=== PATIENT | female | born 1970 | race Hispanic/Latino ===

== ENCOUNTER 2018-10-20 09:15 | Emergency (ER) | payer OTHER ==
[2018-10-20 10:13] LABS: BILIRUBIN,URINE Negative (NEGATIVE); COLOR,URINE Yellow (YELLOW); GLUCOSE, URINE (UA) Negative (NEGATIVE); KETONES,URINE Negative (NEGATIVE); LEUKOCYTE ESTERASE ,URINE Negative (NEGATIVE); NITRATE,URINE Negative (NEGATIVE); OCCULT BLOOD,URINE Moderate (NEGATIVE); PH,URINE 5.5 (5.0-8.0); PROTEIN,URINE Negative (NEGATIVE)
[2018-10-20 10:14] LABS: APPEARANCE,URINE SLIGHTLY CLOUDY (CLEAR)
[2018-10-20 10:30] LABS: BACTERIA,URINE Few /HPF (None Seen); MUCUS,URINE Moderate LPF (None Seen); WBC,URINE 0-1 /HPF (0-1)
[2018-10-20 10:34] LABS: RAPID GROUP A STREP NEGATIVE (NEGATIVE)
[2018-10-20] MEDS ORDERED: ACETAMINOPHEN 325 MG TAB ONE (10:34)
[2018-10-20] MEDS ORDERED: ONDANSETRON ODT 4 MG TAB ONE (11:22)
== END 2018-10-20 11:47 | disposition home or self-care (01) ==
LOC: EDH 09:15
DX: B34.9 Viral infection, unspecified (principal); R11.2 Nausea with vomiting, unspecified; Z90.49 Acquired absence of other specified parts of digestive tract
CPT/HCPCS: 71046; 81001; 81025; 87804; 87880